=== PATIENT | female | born 1990 | race Caucasian/White ===

== ENCOUNTER 2019-07-19 08:13 | Emergency (ER) | payer MEDICAID ==
[~2019-07-19] VITALS: Ht 160 cm; Wt 68.9 kg
--- NOTE | 2019-07-19 08:19 | NUR ---
PT WALKED TO ROOM 7 IN STEADY GAIT WITH TRIAGE NURSE.
[2019-07-19 08:22] VITALS: BP 129/79
[2019-07-19 08:31] VITALS: BP 129/79
--- NOTE | 2019-07-19 08:32 | NUR ---
Patient discharged with v/s stable. Written and verbal after care instructions given and explained. Patient alert, oriented and verbalized understanding of instructions. Ambulatory with steady gait. All questions addressed prior to discharge. ID band removed. Patient advised to follow up with PMD. Rx of KETOFIEN FUMARATE, CLARITIN, SULFACETAMIDE given. Patient educated on indication of medication including possible reaction and side effects. Opportunity to ask questions provided and answered.
== END 2019-07-19 08:32 | disposition home or self-care (01) ==
LOC: MED 08:13
DX: H10.13 Acute atopic conjunctivitis, bilateral (principal)
CPT/HCPCS: 99283

== ENCOUNTER 2019-08-18 07:46 | Emergency (ER) | payer MEDICAID ==
[~2019-08-18] VITALS: Ht 160 cm; Wt 73.9 kg
[2019-08-18 07:53] VITALS: BP 114/63
--- NOTE | 2019-08-18 07:59 | NUR ---
DR. PAN EVALUATING PT AT BEDSIDE
--- NOTE | 2019-08-18 08:01 | NUR ---
PT C/O SHARP PAIN AT R CLAVICLE/SHOULDER X 3 DAYS. PT DENIES INJURY AT THIS TIME AND STATES "I FEEL LIKE SOMETHING NEEDS TO BE PULLED OR POPPED". PT DENIES TAKING ANY MEDICATION AT HOME. PT DENIES CP AND SOB AT THIS TIME. VSS. ER MD TO SEE PT. ALLERGY" DILAUDID, MORPHINE HX: N/A RX: N/A
[2019-08-18] MEDS ORDERED: KETOROLAC 30 MG/ML VIAL IM ONE (08:05)
--- NOTE | 2019-08-18 08:13 | NUR ---
PT TO RADIOLOGY VIA WHEELCHAIR.
--- NOTE | 2019-08-18 09:04 | NUR ---
Patient being reevaluated by DR PAN at bedside.
[2019-08-18 09:30] VITALS: BP 117/60
== END 2019-08-18 09:30 | disposition home or self-care (01) ==
LOC: MED 07:46
DX: S43.401A Unspecified sprain of right shoulder joint, initial encounter (principal); R22.1 Localized swelling, mass and lump, neck; Z88.5 Allergy status to narcotic agent; X58.XXXA Exposure to other specified factors, initial encounter; Y93.89 Activity, other specified; Y92.89 Other specified places as the place of occurrence of the external cause; Y99.8 Other external cause status
CPT/HCPCS: 73000; 81025; 96372; 99283; J1885

== ENCOUNTER 2019-09-09 11:30 | Emergency (ER) | payer MEDICAID ==
[~2019-09-09] VITALS: Ht 165.1 cm; Wt 77.1 kg
[2019-09-09 11:45] VITALS: BP 112/57
--- NOTE | 2019-09-09 11:51 | NUR ---
PT AMBULATED TO BED
--- NOTE | 2019-09-09 12:00 | NUR ---
PT C/O LEFT ELBOW PAIN 2 DAYS AGO S/P MECHANICAL FALL WITH IMPACT ON LEFT ELBOW. PT IS 9 WEEKS AND 5 DAYS , A2. C/O LOWER ABD CRAMPING X3 DAYS. DENIES VAGINAL BLEEDING. CHRISTINE: 04/22/2020. PT TOOK TYLENOL W/O ANY RELIEF. PATIENT STATES PAIN OF 9/10 AT THIS TIME; VSS; PATIENT POSITIONED FOR COMFORT; HOB ELEVATED; BEDRAILS UP X1; BED DOWN. ER MD MADE AWARE OF PT STATUS.
[2019-09-09 12:58] LABS: APPEARANCE,URINE SL CLOUDY (CLEAR); BILIRUBIN,URINE NEGATIVE (NEGATIVE); BLOOD, URINE NEGATIVE (NEGATIVE); COLOR,URINE YELLOW (YELLOW); LEUKOCYTE ESTERASE ,URINE 3+ (NEGATIVE); NITRITE, URINE NEGATIVE (NEGATIVE); UGLUCOSE NEGATIVE (NEGATIVE)
[2019-09-09 13:02] LABS: BASOPHILS % (AUTO) 0.5 % (0.0-2.0); EOSINOPHILS # (AUTO) 0.1 K/uL (0-0.4); EOSINOPHILS % (AUTO) 1.6 % (0.0-4.0); HEMATOCRIT 36.1 % (36-48); HEMOGLOBIN 11.9 g/dL (12.0-16.0); LYMPHOCYTES % (AUTO) 34.4 % (20.5-51.1); MEAN CORPUSCULAR HEMOGLOBIN 30 pg (27-31); MEAN CORPUSCULAR HGB CONC 33 g/dL (33-37); MEAN CORPUSCULAR VOLUME 90.1 fL (80-94); MONOCYTES # (AUTO) 0.4 K/uL (0.8-1.0); MONOCYTES % (AUTO) 6.9 % (1.7-9.3); NEUTROPHILS # (AUTO) 3.3 K/uL (1.8-7.7); NEUTROPHILS % (AUTO) 56.6 % (42.2-75.2); PLATELET COUNT (AUTO) 240 K/uL (140-450); RED BLOOD CELL COUNT(AUTO) 4.01 MIL/uL (4.20-5.40); RED CELL DISTRIBUTION WIDTH 13.2 % (11.6-13.7); WHITE BLOOD COUNT (AUTO) 5.8 K/uL (4.8-10.8)
[2019-09-09 13:03] LABS: RBC,URINE 0-5 /HPF (0-5); WBC,URINE 16-25 (MOD) /HPF (0-5)
[2019-09-09 13:04] LABS: ANION GAP 12.7 (8-16); CARBON DIOXIDE 27.6 mmol/L (21-32); CREATININE 0.7 mg/dL (0.6-1.3); POTASSIUM 4.3 mmol/L (3.5-5.1)
--- NOTE | 2019-09-09 13:10 | NUR ---
Note cresencioone in EDM - 09/09/19 at 1312 by DON Patient discharged with v/s stable. Written and verbal after care instructions given and explained. Patient alert, oriented and verbalized understanding of instructions. Ambulatory with steady gait. All questions addressed prior to discharge. ID band removed. Patient advised to follow up with PMD. Rx of Motrin given. Patient educated on indication of medication including possible reaction and side effects. Opportunity to ask questions provided and answered.
[2019-09-09 15:35] VITALS: BP 110/62
--- NOTE | 2019-09-09 15:35 | NUR ---
Patient discharged with v/s stable. Written and verbal after care instructions given and explained. Patient alert, oriented and verbalized understanding of instructions. Ambulatory with steady gait. All questions addressed prior to discharge. ID band removed. Patient advised to follow up with PMD. Rx of Motrin and Macrobid Capsule given. Patient educated on indication of medication including possible reaction and side effects. Opportunity to ask questions provided and answered.
== END 2019-09-09 15:35 | disposition home or self-care (01) ==
LOC: MED 11:30
DX: O9A.211 Injury, poisoning and certain other consequences of external causes complicating pregnancy, first trimester (principal); S50.02XA Contusion of left elbow, initial encounter; O23.41 Unspecified infection of urinary tract in pregnancy, first trimester; O00.01 Abdominal pregnancy with intrauterine pregnancy; X58.XXXA Exposure to other specified factors, initial encounter; Y93.89 Activity, other specified; Y92.89 Other specified places as the place of occurrence of the external cause; Y99.8 Other external cause status
CPT/HCPCS: 36415; 73080; 76801; 80048; 81001; 81025; 84702; 85025; 86900; 86901; 87086; 99284; Q0092